=== PATIENT | female | born 1955 | race Two or more races ===

== ENCOUNTER 2017-07-29 02:59 | Emergency (ER) | payer MEDICAID ==
[~2017-07-29] VITALS: Ht 157.5 cm; Wt 56.7 kg
[2017-07-29 03:13] VITALS: BP 157/87
== END 2017-07-29 03:58 | disposition left against medical advice (07) ==
LOC: ER 02:59
DX: I10 Essential (primary) hypertension (principal); Z53.21 Procedure and treatment not carried out due to patient leaving prior to being seen by health care provider
CPT/HCPCS: 93005